=== PATIENT | male | born 1935 | race Caucasian/White ===

== ENCOUNTER 2018-12-19 19:40 | Observation (INO) ==
[2018-12-19 20:42] LABS: Basophils % 0.5 % (0.0-0.8); Eosinophils # 0.3 10*3/uL (0.0-0.87); Eosinophils % 3.6 % (0.00-10.9); Hematocrit 43.3 VOL% (42.0-52.0); Hemoglobin 14.3 GM/DL (14.0-18.0); Immature Granulocytes % 0.5 %; Immature Granulocytes Absolute 0.04 #; Lymphocytes # 1.5 10*3/uL (1.4-4.0); Lymphocytes % 19.1 % (21.2-54.2); Mean Corpuscular Volume 89.5 FL (87-102); Mean Platelet Volume 9.9 FL (9.6-12.0); Monocytes % 13.3 % (1.7-12.7); Platelet Count 248 T/CUMM (130-400); Red Blood Count 4.84 MC/CUMM (3.8-5.5); Red Cell Distribution Width 14.8 % (9.3-17.3); White Blood Count 7.8 T/CUMM (4-12)
[2018-12-19 20:49] LABS: INR 0.9; Partial Thromboplastin Time 25.6 SECS (0-40)
[2018-12-19] MEDS ORDERED: hydrALAZINE 20 MG/1 ML VIAL IV STA (20:49)
[2018-12-19 20:53] LABS: Albumin 3.8 G/DL (3.4-5.0); Bilirubin,Total 1.2 MG/DL (0.2-1.0); Calcium 9.1 MG/DL (8.5-10.1); Osmolality,Calculated 271.1 MOS/KG (273-304); Total Protein 6.7 G/DL (6.4-8.3)
[2018-12-19] MEDS ORDERED: LABETALOL 100 MG/20 ML VIAL IV PRN (21:54)
[2018-12-19] MEDS: ENOXAPARIN 40 MG/0.4 ML SYRINGE SUBCUT SCH (23:15)
[2018-12-20 05:01] LABS: Apearance,Urine CLEAR (Clear); Bilirubin,Urine Negative (Negative); Blood, Urine Negative (Negative); Glucose,Urine (UA) Negative (Negative); Ketones,Urine 5 mg/dL (Negative); Nitrite,Urine Negative (Negative); Protein,Urine Negative; RBC,Urine 1 /HPF (0-4); Urine Color Yellow (Yellow); Urine Specific Gravity 1.019 (1.001-1.035); Urine Urobilinogen < 2.0 EU/DL (0.2-1.0); WBC,Urine <1 /HPF (0-6)
[2018-12-20 05:21] LABS: Barbiturates Screen,Urine Negative (Negative); Benzodiazepines Screen,Urine Negative (Negative); Cannabinoid Screen,Urine Negative (Negative); Opiate Screen,Urine Negative (Negative); Phencyclidine Screen,Urine Negative (Negative)
[2018-12-20 07:10] LABS: Osmolality,Calculated 270.1 MOS/KG (273-304); Risk Ratio 2.28; VLDL CHOLESTEROL 13.8 MG/DL
[2018-12-20] MEDS: ASPIRIN 325 MG TABLET PO SCH (08:49)
[2018-12-20] MEDS: LOSARTAN 50 MG TABLET PO SCH (08:49)
[2018-12-20] MEDS: PANTOPRAZOLE 40 MG TABLET PO SCH (08:49)
[2018-12-20] MEDS: BUDESONIDE/FORMOTEROL 160-4.5 INHALER 6 GM INH SCH ×2 (08:49→21:19)
[2018-12-20] MEDS: ATORVASTATIN 40 MG TABLET PO SCH (08:49)
[2018-12-20] MEDS ORDERED: FLUTICASONE 50 MCG NASAL SPRAY 16 GM BOTTLE BOTH NARES SCH ×2 (09:00→21:00)
[2018-12-20] MEDS: amLODIPine 5 MG TABLET PO SCH (17:07)
[2018-12-20] MEDS: ENOXAPARIN 40 MG/0.4 ML SYRINGE SUBCUT SCH (21:19)
[2018-12-20] MEDS: AMOXICILLIN 500 MG CAPSULE PO SCH (21:19)
[2018-12-21 08:10] VITALS: BP 159/95
[2018-12-21] MEDS: PANTOPRAZOLE 40 MG TABLET PO SCH (08:35)
[2018-12-21] MEDS: ATORVASTATIN 40 MG TABLET PO SCH (08:35)
[2018-12-21] MEDS: BUDESONIDE/FORMOTEROL 160-4.5 INHALER 6 GM INH SCH (08:35)
[2018-12-21] MEDS: amLODIPine 5 MG TABLET PO SCH (08:36)
[2018-12-21] MEDS: LOSARTAN 50 MG TABLET PO SCH (08:39)
[2018-12-21] MEDS: ASPIRIN 325 MG TABLET PO SCH (08:39)
[2018-12-21] MEDS: AMOXICILLIN 500 MG CAPSULE PO SCH (08:39)
[2018-12-21] MEDS ORDERED: FLUTICASONE 50 MCG NASAL SPRAY 16 GM BOTTLE BOTH NARES SCH (09:00)
== END 2018-12-21 11:23 | disposition home or self-care (01) ==
LOC: N.EDINP 19:40 → N.ED 19:40 → N.2E 22:29
PROVIDERS: ADMIT Internal Medicine; ATTEND Internal Medicine